=== PATIENT | female | born 1955 | race Caucasian/White ===

== ENCOUNTER 2021-12-07 14:07 | Emergency (ER) | payer BC, MEDICAID ==
[~2021-12-07] VITALS: Ht 162.6 cm; Wt 88.6 kg
[2021-12-07] MEDS ORDERED: htn PO (14:16)
[2021-12-07] MEDS ORDERED: IBUPROFEN 600 MG TABLET PO ONE (15:45)
[2021-12-07 16:54] VITALS: BP 144/94
== END 2021-12-07 17:01 | disposition home or self-care (01) ==
LOC: EMS 14:11
DX: S86.811A Strain of other muscle(s) and tendon(s) at lower leg level, right leg, initial encounter (principal); I10 Essential (primary) hypertension; X58.XXXA Exposure to other specified factors, initial encounter; Y93.89 Activity, other specified; Y92.89 Other specified places as the place of occurrence of the external cause; Y99.8 Other external cause status
CPT/HCPCS: 29505; 99283

== ENCOUNTER 2023-02-26 12:43 | Emergency (ER) | payer MEDICAID ==
[~2023-02-26] VITALS: Ht 157.5 cm; Wt 63.6 kg
[~2023-02-26 12:43] MED LIST: htn PO
[2023-02-26 12:57] VITALS: TEMP 98.2
[2023-02-26 13:13] LABS: COVID AG,FIA SOURCE NASAL SWAB
[2023-02-26 13:55] LABS: INFLUENZA TYPE A NEGATIVE FOR TYPE A (NEGATIVE); INFLUENZA TYPE B NEGATIVE FOR TYPE B (NEGATIVE)
[2023-02-26 14:08] LABS: SARS-COV2 (COVID) ANTIGEN,FIA Positive (Negative)
[2023-02-26 14:38] VITALS: BP 144/75; PULSE 91; RESP 18
== END 2023-02-26 14:47 | disposition home or self-care (01) ==
LOC: EMS 12:43
DX: U07.1 COVID-19 (principal); E11.9 Type 2 diabetes mellitus without complications; I10 Essential (primary) hypertension
CPT/HCPCS: 99284; 71045; 87426; 87804; C9803

== ENCOUNTER 2023-08-06 20:17 | Emergency (ER) | payer MEDICAID ==
[~2023-08-06] VITALS: Ht 165.1 cm; Wt 69.5 kg
[2023-08-06 21:02] VITALS: BP 153/105; PULSE 81; RESP 17; TEMP 98.2
[2023-08-06] MEDS: TraMADol HCL 50 MG TABLET PO ONE (23:55)
[2023-08-07] MEDS ORDERED: TRAM50TA5 PO (00:52)
== END 2023-08-07 02:31 | disposition home or self-care (01) ==
LOC: EMS 20:52
DX: S89.92XA Unspecified injury of left lower leg, initial encounter (principal); E11.9 Type 2 diabetes mellitus without complications; I10 Essential (primary) hypertension; X58.XXXA Exposure to other specified factors, initial encounter; Y93.89 Activity, other specified; Y92.89 Other specified places as the place of occurrence of the external cause; Y99.8 Other external cause status
CPT/HCPCS: 99283

== ENCOUNTER 2025-02-19 11:40 | Emergency (ER) | payer OTHER, MEDICAID ==
[~2025-02-19] VITALS: Ht 160 cm; Wt 81.8 kg
[~2025-02-19 11:40] MED LIST changes: +TRAM50TA5 PO
[2025-02-19 12:04] VITALS: TEMP 98.1
[2025-02-19 12:25] LABS: GLUCOMETER DEV NAME(LOC) ERT.7; GLUCOSE,POINT OF CARE 97 MG/DL (70-110)
[2025-02-19] MEDS ORDERED: HYDR25TA PO (13:15)
[2025-02-19] MEDS ORDERED: METF-1211 PO (13:15)
[2025-02-19] MEDS ORDERED: ATOR40TA71 PO (13:15)
[2025-02-19] MEDS ORDERED: LEVO50TA11 PO (13:15)
[2025-02-19] MEDS ORDERED: LISI-1024 PO (13:15)
[2025-02-19] MEDS: KETOROLAC TROMETHAMINE 60 MG/2 ML VIAL IM ONE (13:23)
[2025-02-19] MEDS: ACETAMINOPHEN 500 MG TABLET PO ONE (13:23)
[2025-02-19 14:10] VITALS: BP 141/75; PULSE 71; RESP 16; O2SAT 98
[2025-02-19] MEDS ORDERED: IBUP-1554 PO (14:18)
[2025-02-19] MEDS ORDERED: ACET-66 PO (14:18)
== END 2025-02-19 14:40 | disposition home or self-care (01) ==
LOC: EMS 11:45
DX: S29.012A Strain of muscle and tendon of back wall of thorax, initial encounter (principal); S39.012A Strain of muscle, fascia and tendon of lower back, initial encounter; S16.1XXA Strain of muscle, fascia and tendon at neck level, initial encounter; F03.A0 Unspecified dementia, mild, without behavioral disturbance, psychotic disturbance, mood disturbance, and anxiety; E11.9 Type 2 diabetes mellitus without complications; E78.00 Pure hypercholesterolemia, unspecified; I10 Essential (primary) hypertension; Z79.899 Other long term (current) drug therapy; V89.2XXA Person injured in unspecified motor-vehicle accident, traffic, initial encounter; Y93.89 Activity, other specified; Y92.410 Unspecified street and highway as the place of occurrence of the external cause; Y99.8 Other external cause status
CPT/HCPCS: 99284; 82962; 72040; 72070; 96372; J1885